=== PATIENT | male | born 1990 | race Caucasian/White ===

== ENCOUNTER 2017-03-17 02:13 | Inpatient (IN) | payer OTHER, SELFPAY ==
[2017-03-17] MEDS ORDERED: Ondansetron HCl/PF 4 MG/2 ML Vial ONE (02:43)
[2017-03-17] MEDS ORDERED: WATER IVPB SCH ×6 (03:00→09:00)
[2017-03-17] MEDS ORDERED: DEXTROSE 5% IVPB SCH ×6 (03:00→09:00)
[2017-03-17] MEDS ORDERED: ACETYLCYSTEINE IVPB SCH ×6 (03:00→09:00)
[2017-03-17 03:26] LABS: ALT (SGPT) 139 U/L (8-55); AST (SGOT) 45 U/L (5-34); Alkaline Phosphatase 94 U/L (40-150); Bilirubin, Direct 0.2 mg/dL (0.1-0.3); Bilirubin, Total 0.4 mg/dL (0.2-1.2); Protein, Total 7.3 g/dL (6.0-8.3); Prothrombin Time 12.9 SEC (12.0-14.7); Salicylate Less than 8.0 mg/dL (15.0-30.0)
[2017-03-17] MEDS ORDERED: Ondansetron HCl/PF 4 MG/2 ML Vial IVP PRN (04:15)
--- NOTE | 2017-03-17 04:15 | PDOC.EVN ---
Event Note - Event Note Event Note: [id number] H&P Dictated 1. Tylenol toxicity 2. Drug over dose 3. Nausea plan: see orders
[2017-03-17] MEDS: Sodium Chloride 0.9% 1,000 ML IV SCH ×2 (05:26→15:32)
[2017-03-17 06:16] LABS: ALT (SGPT) 110 U/L (8-55); AST (SGOT) 32 U/L (5-34); Acetaminophen Less than 6.0 mcg/mL (10.0-30.0); Alkaline Phosphatase 70 U/L (40-150); Bilirubin, Direct 0.2 mg/dL (0.1-0.3); Bilirubin, Total 0.4 mg/dL (0.2-1.2)
[2017-03-17 07:36] VITALS: BMI 26.6
[2017-03-17] MEDS ORDERED: FLU VACC QS2017-18 36 mo. & older 0.5 ML SYRINGE IM ONE (08:00)
[2017-03-17] MEDS: Famotidine/PF 20 mg/2ml Vial SLOW IVP SCH ×2 (08:06→20:16)
[2017-03-17] MEDS: Heparin 5,000 UNITS/ML VIAL SC SCH ×3 (08:07→20:16)
[2017-03-17] MEDS: FLUoxetine HCl 10 MG CAP PO SCH (09:09)
[2017-03-17] MEDS: Lorazepam 1 MG TAB PO SCH ×2 (09:09→20:16)
--- NOTE | 2017-03-17 10:58 | HP ---
DATE OF ADMISSION: 03/17/2017 CHIEF COMPLAINT: Drug overdose. HISTORY OF PRESENT ILLNESS: The patient is 26 years old male with no significant past medical history except for depression, came to the ER because of drug overdose. The patient said he took 52 tablets of [place] 10/325 tablets at home around 8:00 p.m. and after that told his family, so patient was taken to the outside ER. In the outside ER, patient was given charcoal and sorbitol and patient was transferred here. Upon ER arrival, Tylenol level was checked and patient's initial Tylenol level was around 27, though patient was started on NAC per protocol. The patient denies any pain at this time. Denies any chest pain, denies any trouble breathing, denies any dizziness. Complains some nausea. Denies any fever, denies any chills. PAST MEDICAL HISTORY: Depression. PAST SURGICAL HISTORY: Reviewed. SOCIAL HISTORY: Reviewed. MEDICATIONS: Reviewed. FAMILY HISTORY: Denies any heart problems. REVIEW OF SYSTEMS: Constitutional: Denies any fever, denies any chills. Eyes : Denies any vision problems. Ears: Denies any hearing loss. Neck: Denies any neck pain. Cardiovascular system: Denies any chest pain. Respiratory: Denies any cough, denies sputum production. Gastrointestinal: Positive for nausea. Cranial Nerve System: Denies syncope. Psychiatric: Positive for depression. All other review of systems are reviewed and are negative. PHYSICAL EXAMINATION: CONSTITUTIONAL/VITAL SIGNS: At the time of H and P performed, blood pressure is 130/70, afebrile, pulse ox 97%. GENERAL: This patient appears comfortable. HEENT: Pupils equal, round, and reactive to light. Anterior nares patent. Nose normal. Ears normal. Teeth intact. Tongue is moist. NECK: Supple. No JVD. CARDIOVASCULAR: S1, S2 present. Regular rate and rhythm. No murmurs, no rubs , no gallops. RESPIRATORY: No wheezing, no rhonchi. Normal effort. GASTROINTESTINAL: Abdomen, mild tender to palpate. No guarding, no organomegaly, no masses felt. CRANIAL NERVE SYSTEM: Cranial nerves intact. Follows commands. Strength intact, sensory intact. PSYCHIATRIC: Mood appropriate at this time. LABORATORY DATA: At the time of H and P performed, PT 12.9, INR 1, magnesium 2 , AST 45, ALT 139, albumin 4.4. Tylenol level currently is 27 and positive for opiates urine drug screen. IMPRESSION AND PLAN: The patient is 26 years old male. 1. Drug overdose plus Tylenol toxicity plus plan to continue NAC per protocol. Plan to monitor the patient closely. Check serial Tylenol levels and liver function tests every 4 hours. We will consult GI, also to evaluate the patient. We will admit patient to the ICU for close monitoring. 2. History of depression. Plan to consult Psych for evaluation. 3. Nausea, p.r.n. antiemetics. The case was discussed in detail with the patient. MTDD
[2017-03-17 11:52] LABS: ALT (SGPT) 117 U/L (8-55); AST (SGOT) 35 U/L (5-34); Acetaminophen Less than 6.0 mcg/mL (10.0-30.0); Alkaline Phosphatase 78 U/L (40-150); Bilirubin, Direct 0.2 mg/dL (0.1-0.3); Bilirubin, Total 0.5 mg/dL (0.2-1.2); Protein, Total 6.6 g/dL (6.0-8.3)
[2017-03-17 14:12] LABS: PTT 27.7 SEC (22.9-36.1); Prothrombin Time 14.4 SEC (12.0-14.7)
[2017-03-17 14:28] LABS: ALT (SGPT) 111 U/L (8-55); AST (SGOT) 34 U/L (5-34); Acetaminophen Less than 6.0 mcg/mL (10.0-30.0); Alkaline Phosphatase 80 U/L (40-150); Bilirubin, Direct 0.2 mg/dL (0.1-0.3); Bilirubin, Total 0.4 mg/dL (0.2-1.2); Protein, Total 6.6 g/dL (6.0-8.3)
[2017-03-17 18:18] LABS: ALT (SGPT) 117 U/L (8-55); AST (SGOT) 33 U/L (5-34); Acetaminophen Less than 6.0 mcg/mL (10.0-30.0); Alkaline Phosphatase 84 U/L (40-150); Bilirubin, Direct 0.2 mg/dL (0.1-0.3); Bilirubin, Total 0.5 mg/dL (0.2-1.2); Protein, Total 7.1 g/dL (6.0-8.3)
[2017-03-17 18:42] LABS: Amphetamine Not Detected (NotDetected); Methadone Not Detected (NotDetected); Methamphetamine Not Detected (NotDetected)
--- NOTE | 2017-03-17 19:54 | CON ---
DATE OF CONSULTATION: 03/17/2017 HISTORY OF PRESENT ILLNESS: Mr. Maik Carmona is a 26-year-old unfortunate gentleman because of life situation, depressed. He took 50 tablets of 10/325 hydrocodone, which was given by his primary care physician for chronic pain, nausea, vomiting and was transferred to [facility], admitted wit h a Tylenol overdose. He was started on IV Mucomyst. He previously received Prozac. He is from the local area. He lives in [place]. He is presently unemployed. PAST MEDICAL HISTORY: No diabetes or hypertension. PREVIOUS SURGERIES: Apparently none. CHRONIC MEDICATIONS: None except for the [place] prescribed for back pain. REVIEW OF SYSTEMS: Otherwise unremarkable. PHYSICAL EXAMINATION: GENERAL: Appears to be in no acute distress. Admitting Tylenol level was 27 at 2:00 in the morning. VITAL SIGNS: His blood pressure is 130/64, sats are 97%, temperature 98, respiration 14. CHEST: Chest reveals decreased breath sounds, no wheezing. CARDIAC: Normal S1, S2. No gallops. ABDOMEN: Soft, no masses. LABORATORY DATA: His electrolytes are normal. Liver function was normal. Alcohol level was negativ e. IMPRESSION: Intentional overdose on 50, 325 mg of Tylenol. PLAN: He was started on Mucomyst protocol, which I will continue. Supportive care, hydration. He needs counseling. Eventually, discharge when stable.
--- NOTE | 2017-03-17 20:32 | CON ---
DATE OF CONSULTATION: 03/17/2017 REASON FOR CONSULTATION: Tylenol ingestion. HISTORY OF PRESENT ILLNESS: Mr. Carmona was admitted in transfer to this hospital from [facility] ncy Room where he initially presented, apparently he reported he took 52 tablets of [place] 10/325 abou t 8:00 p.m. last night. He maybe threw a little bit of it up. He told his family and they took him to the [facility] Emergency Room. There are no records from [facility] Emergency Room in the chart, but ap parently they gave him charcoal and sorbitol, and this was confirmed by the patient in the ER, and he was transferred here. Here the Tylenol level was checked and was 27 mcg per mL that was at about 3: 00 a.m., which would have been about six and half hours after ingestion, and on the nomogram for Tyle nol, acetaminophen toxicity, this is not in the toxic range. Nonetheless, unclear time of ingestions and unclear number of pills, he was started on Mucomyst in the emergency room. A second level was d rawn at 6:00 a.m. and was 6 mcg per mL, still below the level of toxicity if the nomogram is to be be lieved. The patient never had any loss of conscious, never had any altered mental status. He did no t have to receive [place] in either emergency room and according to the nurses, he has been completely stable. He denies any pain or vomiting at this point in time. He denies drinking alcohol other than a beer or 2 every few weeks. He denies taking any drugs. He had recently been started on some anti depressants. He denies any history of liver disease or hepatitis or family history of liver disease. PAST MEDICAL HISTORY: Depression. PAST SURGICAL HISTORY: None. SOCIAL HISTORY: Negative for alcohol, drugs or tobacco. MEDICATIONS: At home, apparently has some [place] on hand, recently prescribed Prozac by his PCP but s topped that a couple of weeks ago. FAMILY HISTORY: No family history of liver disease or colorectal disease. PRESENT MEDICATIONS HERE IN THE HOSPITAL: Acetylcysteine antidote, he received the two first infusio n and now he is receiving 100 mg/kg over 16 hours last bag and still of the long antidote infusion. Has p.r.n. Zofran, sodium chloride 100 an hour, lorazepam b.i.d. p.r.n., fluoxetine 10 mg daily, Pepc id 20 mg IV q.12 hours for ulcer prophylaxis. PHYSICAL EXAMINATION: GENERAL: He is resting comfortably in bed. The patient is alert and oriented to person, place, and time, sitter in the room. He makes good eye contact. He is conversant. Does not seem overly somnol ent, sleepy or hostile. VITAL SIGNS: He has been afebrile. Temperature is 98, pulse 82, respirations between 16 and 14, O2 sat 100%, blood pressure 130/90. LUNGS: Clear. HEART: Regular rate and rhythm without clicks or murmurs. ABDOMEN: Soft, nontender. There is no palpable hepatosplenomegaly. There is no tenderness in the r ight upper quadrant. There is no ascites. EXTREMITIES: No clubbing, cyanosis or edema. There is no ecchymosis or bruising. There is no spide r angiomata or palmar erythema or other findings suggest chronic liver disease. LABORATORY STUDIES: INR was 1 at 3 o'clock this morning. AST and ALT of 45 and 139 at 3:00 a.m., 32 and 110 at 6:00 a.m., and 35 and 117 at 9:45 a.m. Tylenol level was at 27 mcg per mL at 2:56 a.m., less than 6 at 5:49 a.m., and last was 6 at 9:45 a.m. Plasma alcohol was less than 10. ASSESSMENT: Tylenol ingestion. The patient reports 50 pill ingestion of [place]. I suspect that he d id not absorb although so he did not take all those because he had no somnolence or signs of narcotic overdose and has not. His Tylenol levels if the time he reports are accurate we indicate he has bel ow the toxic levels on the nomogram with respect to time and Tylenol levels per time of ingestion; ho wever, there has been times were up slightly and I think we should continue the aggressive use of N-a cetylcysteine. At this time, he shows no signs of liver failure. We will check liver functions ever y 4 hours. He probably needs a comp met profile once at least Tylenol and [place] can in massive amoun ts cause metabolic acidosis, although it does not seem that is an issue at this time. If he were to begin to show signs of liver failure with elevated INR, elevated LFTs, encephalopathy, then he will n eed to be transferred to a tertiary care facility where liver transplantation is available; however, at this time, he needs to be continue to have a sitter and will be monitored in the Intermediate Care Unit for another 24 hours.
[2017-03-17 22:25] LABS: ALT (SGPT) 107 U/L (8-55); AST (SGOT) 33 U/L (5-34); Alkaline Phosphatase 76 U/L (40-150); Bilirubin, Direct 0.1 mg/dL (0.1-0.3); Bilirubin, Total 0.3 mg/dL (0.2-1.2); Protein, Total 6.4 g/dL (6.0-8.3)
[2017-03-18] MEDS: rOPINIRole HCl 0.25 MG TAB PO PRN (01:48)
[2017-03-18] MEDS: Sodium Chloride 0.9% 1,000 ML IV SCH ×3 (01:48→21:10)
[2017-03-18 04:50] LABS: ALT (SGPT) 105 U/L (8-55); AST (SGOT) 30 U/L (5-34); Alkaline Phosphatase 76 U/L (40-150); Anion Gap 11 mmol/L (10-20); BUN (Urea Nitrogen) 6 mg/dL (8.9-20.6); Bilirubin, Total 0.5 mg/dL (0.2-1.2); Calc. Creatinine Clearance 177 mL/min (70-130); Calcium 9.5 mg/dL (7.8-10.44); Carbon Dioxide 26 mmol/L (22-29); Chloride 107 mmol/L (98-107); Estimated GFR-MDRD Greater than 90; Globulin 2.7 g/dL (2.4-3.5); Protein, Total 6.6 g/dL (6.0-8.3)
[2017-03-18 05:13] LABS: Prothrombin Time 14.1 SEC (12.0-14.7)
[2017-03-18 06:14] LABS: Band 1 % (5-11); Hematocrit 42.1 % (42.0-52.0); Mean Platelet Volume 7.1 fL (7.4-10.4); Neutrophil 54 % (42-75); Reactive Lymphocytes 1 % (0-10); Red Blood Cell (RBC) Count 4.48 mill/uL (4.70-6.10); White Blood Cell (WBC) Count 6.4 thou/uL (4.8-10.8)
[2017-03-18] MEDS: FLUoxetine HCl 10 MG CAP PO SCH (08:54)
[2017-03-18] MEDS: Lorazepam 1 MG TAB PO SCH ×2 (08:54→21:04)
[2017-03-18] MEDS: Heparin 5,000 UNITS/ML VIAL SC SCH ×3 (08:55→21:04)
[2017-03-18] MEDS: Famotidine/PF 20 mg/2ml Vial SLOW IVP SCH ×2 (08:58→21:04)
--- NOTE | 2017-03-18 12:30 | PRG ---
DATE OF SERVICE: 03/18/2017 SUBJECTIVE: The patient this morning awake, alert, responsive. No nausea, no vomiting. PHYSICAL EXAMINATION: VITAL SIGNS: Sats are 99% on room air, blood pressure 120/73, pulse 75, respirations 18. CHEST: No wheezing. CARDIAC: Normal S1, S2, no gallops. LABORATORY DATA: White count normal. Electrolytes are normal. Liver functions are unremarkable. H is hep C antibody apparently was positive. IMPRESSION: 1. Status post Tylenol overdose. 2. Hepatitis C antibody positive. PLAN: He needs [facility] counseling otherwise can be transferred out of the ICU. We will follow at a dis tance.
--- NOTE | 2017-03-18 14:55 | PRG ---
DATE OF SERVICE: 03/18/2017 SUBJECTIVE: The patient is seen and examined at bedside. He is doing quite well. He does not have much complaints to offer. OBJECTIVE: VITAL SIGNS: Blood pressure is 117/67, pulse is 98, temperature is 98.4, respiratory rate is 17, and O2 saturation is 99%. HEENT: His head is atraumatic, normocephalic. Eyes PERRLA. Conjunctivae pinkish. Oral mucosa is m oist. NECK: Supple, no lymphadenopathy. Thyroid is not palpable. LUNGS: Clear. HEART: S1, S2 normal, no S3, no S4, no murmur. ABDOMEN: Soft, nontender, bowel sounds are present, no organomegaly. EXTREMITIES: No clubbing, cyanosis or edema. NEUROLOGIC: He is alert and oriented x4. There are not any motor or sensory deficits. Cranial nerv es are intact. LABORATORY DATA: Showed white count of 6.4. Hemoglobin of 14.4, hematocrit 42.1, platelet count is 249. PT 14.1, INR 1.1. Electrolytes within normal limits. BUN 6, creatinine 0.68, glucose 117, AST 30, ALT 105. The rest of chemistry within normal limits. Urine drug screen showed positive opiates and serology showed positive hepatitis C antibodies. IMPRESSION: 1. Suicidal attempt with a drug overdose. Apparently, the patient took approximately 50 [place], whic h does not correlate with presentation. He was not drowsy what one would expect from taking 50 Helen and his liver function test did not change much from baseline, actually but they slightly improved. The patient was seen by Dr. Paredes for GI evaluation. He agrees that this had to be much smaller in gestion of Tylenol since we do not have any change in his PT and INR and liver function tests. 2. Positive for hepatitis C antibodies. 3. Suicidal attempt. DISCUSSION: The patient received full protocol for NAC completed and his liver function tests are no rmal. Clinically, he is doing well. There is no need for any transfer to any tertiary care hospital for any purpose. We will get [facility] to evaluate the patient and most likely he will need placement in the psych facility for suicidal attempt. We will continue with a sitter one-on-one.
[2017-03-18] MEDS: Nicotine 14 MG PATCH TOP SCH (15:52)
[2017-03-19] MEDS: rOPINIRole HCl 0.25 MG TAB PO PRN (01:29)
--- NOTE | 2017-03-19 06:24 | PRG ---
DATE OF SERVICE: 03/18/2017 SUBJECTIVE: Mr. Carmona is feeling well. Nurses informed that his parents noted that he had been usi ng meth heavily recently. He denies this. PHYSICAL EXAMINATION: VITAL SIGNS: Temperature is 99, blood pressure 117/74. ABDOMEN: Nontender. LABORATORY DATA: Today, CBC is normal. Comp metabolic profile is normal except for an AST of 105. Drug screen was negative on admission except for the opiates. Hepatitis A and B were negative, C ant ibody is positive. Reflex is pending. RNA has been ordered. HIV test was ordered in light of needle use and is pending. The patient denies all of this, but his parents are pretty adamant that he has had his substance abuse issues. I have talked to both the patient and the parents about these issues and if he has positive hepatitis C RNA, he will need to be treated at some point in time in t he future. ASSESSMENT AND PLAN: Suicidal ingestion of narcotic and Tylenol. He seems to be out of the [facility] this. They are pending transfer to [place].
[2017-03-19] MEDS: Sodium Chloride 0.9% 1,000 ML IV SCH ×3 (06:32→20:57)
[2017-03-19] MEDS: FLUoxetine HCl 10 MG CAP PO SCH (08:11)
[2017-03-19] MEDS: Famotidine/PF 20 mg/2ml Vial SLOW IVP SCH ×2 (08:11→20:53)
[2017-03-19] MEDS: Heparin 5,000 UNITS/ML VIAL SC SCH ×3 (08:11→20:53)
[2017-03-19] MEDS: Lorazepam 1 MG TAB PO SCH ×2 (08:12→20:53)
--- NOTE | 2017-03-19 15:47 | PDOC.PN ---
- Subjective Encounter Start Date: 03/19/17 Encounter Start Time: 15:46 Subjective: Seen and examined awaiting WEN placement - Objective Vital Signs & Weight: Vital Signs (12 hours) Temp Pulse Resp BP Pulse Ox 03/19/17 15:41 98.9 F 91 15 139/60 96 03/19/17 11:31 98.2 F 20 125/64 100 03/19/17 07:27 98.3 F 76 14 97 03/19/17 07:26 98.3 F 76 14 135/77 97 03/19/17 05:10 98.6 F 85 18 122/72 97 I&O: 03/18/17 03/19/17 03/20/17 06:59 06:59 06:59 Intake Total 3186 4890 910 Output Total 450 1200 Balance 2736 3690 910 Result Diagrams: 03/18/17 04:21 03/18/17 04:21 Phys Exam - Physical Examination Constitutional: NAD HEENT: PERRLA, moist MMs, sclera anicteric, TM's clear Neck: no nodes, no JVD, supple, full ROM Respiratory: no wheezing, no rales, no rhonchi, clear to auscultation bilateral Cardiovascular: RRR, no significant murmur, no rub Gastrointestinal: soft, non-tender, no distention, positive bowel sounds Musculoskeletal: no edema, pulses present Dx/Plan (1) Drug overdose, intentional Code(s): T50.902A - POISONING BY UNSP DRUG/MEDS/BIOL SUBST, SELF-HARM, INIT Status: Acute (2) Suicidal behavior with attempted self-injury Code(s): T14.91XA - SUICIDE ATTEMPT, INITIAL ENCOUNTER Status: Acute - Plan social worker delinquency prevention Awaiting WEN placement * .
[2017-03-19] MEDS: Nicotine 14 MG PATCH TOP SCH (16:55)
[2017-03-20] MEDS: Sodium Chloride 0.9% 1,000 ML IV SCH ×3 (04:20→20:39)
[2017-03-20] MEDS: FLUoxetine HCl 10 MG CAP PO SCH (10:48)
[2017-03-20] MEDS: Famotidine/PF 20 mg/2ml Vial SLOW IVP SCH ×2 (10:49→20:39)
[2017-03-20] MEDS: Lorazepam 1 MG TAB PO SCH (10:49)
[2017-03-20] MEDS: Heparin 5,000 UNITS/ML VIAL SC SCH ×3 (10:51→20:39)
--- NOTE | 2017-03-20 11:38 | PDOC.PN ---
- Subjective Encounter Start Date: 03/20/17 Encounter Start Time: 12:15 Subjective: Patient without complaints. Doesn't like Prozac and ativan and hasn' t taken -: for several weeks. Will stop. - Objective MAR Reviewed: Yes Vital Signs & Weight: Vital Signs (12 hours) Temp Pulse Resp BP Pulse Ox 03/20/17 08:48 98.2 F 79 18 131/79 99 03/20/17 08:00 98.2 F 79 18 03/20/17 04:00 98.5 F 75 18 139/92 H 100 03/20/17 00:00 98.2 F 85 18 132/77 99 I&O: 03/19/17 03/20/17 03/21/17 06:59 06:59 06:59 Intake Total 4890 5310 Output Total 1200 Balance 3690 5310 Result Diagrams: 03/18/17 04:21 03/18/17 04:21 Phys Exam - Physical Examination Constitutional: NAD HEENT: moist MMs Respiratory: no wheezing, no rales, no rhonchi Cardiovascular: RRR, no significant murmur Gastrointestinal: soft, positive bowel sounds Neurological: non-focal, moves all 4 limbs Psychiatric: normal affect, A&O x 3 Dx/Plan (1) Drug overdose, intentional Code(s): T50.902A - POISONING BY UNSP DRUG/MEDS/BIOL SUBST, SELF-HARM, INIT Status: Resolved (2) Suicidal behavior with attempted self-injury Code(s): T14.91XA - SUICIDE ATTEMPT, INITIAL ENCOUNTER Status: Acute (3) Hepatitis C infection Code(s): B19.20 - UNSPECIFIED VIRAL HEPATITIS C WITHOUT HEPATIC COMA Status: Acute Qualifiers: Viral hepatitis chronicity: chronic Comment: Patient informed about infection and need to followup with GI as an outpatient. - Plan cont current plan of care Awaiting WEN placement * . - Discharge Day Encounter end time: 12:45
[2017-03-20 12:13] LABS: Hep C PCR-Quant 7860000 IU/mL (.)
[2017-03-20] MEDS ORDERED: Lorazepam 1 MG TAB PO PRN (12:43)
[2017-03-20] MEDS: Nicotine 14 MG PATCH TOP SCH ×2 (18:19→18:43)
--- NOTE | 2017-03-21 05:45 | PRG ---
DATE OF SERVICE: 03/20/2017 SUBJECTIVE: Mr. Carmona is pacing kind of in halls and in his room. He is in no distress. OBJECTIVE: VITAL SIGNS: Temperature is 98, pulse 79 and blood pressure 131/79. ABDOMEN: Nontender. LABORATORY STUDIES: His hepatitis C RNA is positive. His HIV was negative. ASSESSMENT AND PLAN: 1. Tylenol overdose, suicidal gesture. 2. Recent meth use. 3. I suspect a strong component of underlying psychiatric disorder, awaiting transfer to inpatient f acility, which I think is important. I think outpatient therapy is not in work for this gentleman. He will be back in the hospital soon 4. Hepatitis C. This can be treated in the outpatient setting once acute psychiatric issues are add ressed. At this time, the patient's family was informed of positive hepatitis C test and the way to contact my office for treatment in a few months once everything else will settle down. 5. At this point in time, I will sign off. If I can be of any further assistance in the patient's c are, please do not hesitate to contact me.
[2017-03-21] MEDS: Sodium Chloride 0.9% 1,000 ML IV SCH ×2 (08:54→18:23)
[2017-03-21] MEDS: Famotidine/PF 20 mg/2ml Vial SLOW IVP SCH ×2 (08:55→20:18)
--- NOTE | 2017-03-21 11:32 | PDOC.PN ---
- Subjective Encounter Start Date: 03/21/17 Encounter Start Time: 11:30 Subjective: Patient denies complaints. No N/V/Abd pain. - Objective MAR Reviewed: Yes Vital Signs & Weight: Vital Signs (12 hours) Temp Pulse Resp BP 03/21/17 08:00 97.6 F 72 20 131/91 H I&O: 03/20/17 03/21/17 03/22/17 06:59 06:59 06:59 Intake Total 5310 Balance 5310 Result Diagrams: 03/18/17 04:21 03/18/17 04:21 Phys Exam - Physical Examination Constitutional: NAD HEENT: moist MMs Respiratory: no wheezing, no rales, no rhonchi Cardiovascular: RRR, no significant murmur Gastrointestinal: soft, non-tender, positive bowel sounds Musculoskeletal: no edema Neurological: non-focal, moves all 4 limbs Psychiatric: normal affect, A&O x 3 Dx/Plan (1) Drug overdose, intentional Code(s): T50.902A - POISONING BY UNSP DRUG/MEDS/BIOL SUBST, SELF-HARM, INIT Status: Resolved (2) Suicidal behavior with attempted self-injury Code(s): T14.91XA - SUICIDE ATTEMPT, INITIAL ENCOUNTER Status: Acute (3) Hepatitis C infection Code(s): B19.20 - UNSPECIFIED VIRAL HEPATITIS C WITHOUT HEPATIC COMA Status: Acute Qualifiers: Viral hepatitis chronicity: chronic Comment: Patient informed about infection and need to followup with GI as an outpatient. - Plan cont current plan of care Awaiting WEN bed, family doesn't trust patient to make safety plan. * . - Discharge Day Encounter end time: 12:00
[2017-03-21] MEDS: Heparin 5,000 UNITS/ML VIAL SC SCH ×3 (11:36→20:17)
[2017-03-22] MEDS: Sodium Chloride 0.9% 1,000 ML IV SCH ×2 (02:00→10:50)
[2017-03-22] MEDS: Heparin 5,000 UNITS/ML VIAL SC SCH ×3 (08:28→20:02)
[2017-03-22] MEDS: Famotidine/PF 20 mg/2ml Vial SLOW IVP SCH ×2 (09:00→21:19)
--- NOTE | 2017-03-22 14:22 | PDOC.PN ---
- Subjective Encounter Start Date: 03/22/17 Encounter Start Time: 14:30 Subjective: No complaint. No abdominal pain. No N/V. Awaiting [facility] and placement - Objective MAR Reviewed: Yes Vital Signs & Weight: Vital Signs (12 hours) Temp Pulse Resp BP Pulse Ox 03/22/17 08:00 98 F 65 16 03/22/17 07:22 98 F 65 16 120/61 100 I&O: 03/21/17 03/22/17 03/23/17 06:59 06:59 06:59 Intake Total 1200 Balance 1200 Result Diagrams: 03/18/17 04:21 03/18/17 04:21 Phys Exam - Physical Examination Constitutional: NAD HEENT: moist MMs Respiratory: no wheezing, no rales, no rhonchi, clear to auscultation bilateral Cardiovascular: RRR, no significant murmur Gastrointestinal: soft, non-tender, positive bowel sounds Neurological: non-focal, moves all 4 limbs Psychiatric: A&O x 3 Dx/Plan (1) Drug overdose, intentional Code(s): T50.902A - POISONING BY UNSP DRUG/MEDS/BIOL SUBST, SELF-HARM, INIT Status: Resolved (2) Suicidal behavior with attempted self-injury Code(s): T14.91XA - SUICIDE ATTEMPT, INITIAL ENCOUNTER Status: Acute (3) Hepatitis C infection Code(s): B19.20 - UNSPECIFIED VIRAL HEPATITIS C WITHOUT HEPATIC COMA Status: Acute Qualifiers: Viral hepatitis chronicity: chronic Comment: Patient informed about infection and need to followup with GI as an outpatient. - Plan cont current plan of care Awaiting transfer to [facility] * . - Discharge Day Encounter end time: 15:00
[2017-03-22] MEDS: Nicotine 14 MG PATCH TOP SCH (14:59)
[2017-03-22] MEDS ORDERED: Famotidine 20 MG TAB PO SCH (21:15)
[2017-03-23] MEDS: rOPINIRole HCl 0.25 MG TAB PO PRN (00:19)
[2017-03-23 08:08] VITALS: BP 114/62; TEMP 97.7
[2017-03-23] MEDS ORDERED: Famotidine 20 MG TAB PO SCH (09:00)
[2017-03-23] MEDS: Heparin 5,000 UNITS/ML VIAL SC SCH ×2 (10:42→15:05)
[2017-03-23] MEDS: Nicotine 14 MG PATCH TOP SCH (17:23)
== END 2017-03-23 17:35 | DRG 918 ==
LOC: ERS 02:13 → IMCU/EMU 04:56 → T4-A 03-19 22:01
PROVIDERS: ADMIT Internal Medicine; ATTEND Internal Medicine
DX: T39.1X2A Poisoning by 4-Aminophenol derivatives, intentional self-harm, initial encounter (principal); F32.9 Major depressive disorder, single episode, unspecified; R11.0 Nausea; B18.2 Chronic viral hepatitis C
CPT/HCPCS: 36415; 80053; 80074; 80076; 80306; 80307; 83735; 85007; 85027; 85610; 85730; 87389; 87522; 93005; 96361; 96365; 96374; A4216; J0132; J1644; J2405; J7070; S0028